=== PATIENT | male | born 1965 | race African-American/Black ===

== ENCOUNTER 2016-07-15 14:27 | Emergency (ER) ==
[2016-07-15 14:41] VITALS: BP 165/103
[2016-07-15] MEDS ORDERED: NORCO-7.5 PO ONE (15:01)
[2016-07-15] MEDS ORDERED: PHENERGAN PO ONE (15:01)
--- NOTE | 2016-07-15 15:05 | PROVIDER DOCUMENTATION ---
HPI-Headache - General Source: patient - History of Present Illness-Headache Onset/Duration: reports: just prior to arrival Timing: reports: still present Headache History: reports: frequent headaches <Mery Abarca - Last Filed: 07/15/16 15:00> - General Source: patient <Gianluca Cast - Last Filed: 07/15/16 17:45> - General Chief Complaint: Headache Stated Complaint: HEADACHE Time Seen by Provider: 07/15/16 14:50 Allergies/Adverse Reactions: Patient Allergies Allergy/AdvReac Type Severity Reaction Status Date / Time morphine Allergy Unknown Verified 02/16/16 22:33 Home Medications: Citalopram [Celexa] 20 mg PO DAILY 05/03/14 Triamterene/Hydrochlorothiazid [Triamterene-Hctz 37.5-25 mg Tb] 1 each PO DAILY 05/03/14 - History of Present Illness-Headache Nature of Presenting Problem: Pt presents to the ER with complaint of headache. Pt states headache came on just prior to arrival. (Mery Abarca) Review of Systems - Adult - REVIEW OF SYSTEMS - ADULT Constitutional: denies: chills, fever Eyes: reports: no symptoms reported Ears, Nose, Mouth & Throat: reports: no symptoms reported Cardiovascular: reports: no symptoms reported Respiratory: reports: no symptoms reported Gastrointestinal: reports: no symptoms reported Genitourinary: reports: no symptoms reported Musculoskeletal: reports: no symptoms reported Integumentary: reports: no symptoms reported Neurological: reports: headache/migraines. denies: seizure Psychiatric: reports: no symptoms reported Endocrine: reports: no symptoms reported Hematologic/Lymphatic: reports: no symptoms reported Allergic/Immunologic: reports: no symptoms reported All Other Systems: Reviewed and Negative <Mery Abarca - Last Filed: 07/15/16 15:00> Past History - Adult - PAST MEDICAL HISTORY-ADULT Review of Records: reports: Nursing Assessment Review, Medications Reviewed Cardiovascular: reports: HTN, hyperlipidemia Neurological: reports: CVA, Seizures/Epilepsy, TIA - PRIOR SURGERIES/PROCEDURES Surgical/Procedure History: reports: none - IMMUNIZATION STATUS Childhood Immunizations: See Nurse Assessment Flu Vaccine: See Nurse Assessment <Mery Abarca - Last Filed: 07/15/16 15:00> Physical Exam- Neurological - Physical Exam-Neuro General Appearance: appears well, no apparent distress Eye Exam: bilateral eye: normal inspection, PERRL HENMT: normocephalic/atraumatic, normal ENT inspection Head Injury: no evidence of injury. negative: lacerations Neck: supple, normal inspection Respiratory: no respiratory distress, no accessory muscle use Cardiovascular: normal peripheral pulses, regular rate, rhythm Extremity: normal gait, normal inspection forging press operator Exam: normal hearing, normal speech Coordination/Gait: normal gait Motor/Sensory: no sensory deficit, no pronator drift Neurologic: grossly normal, no motor/sensory deficits Integumentary: normal color, warm/dry Psych/Mental Status: normal mood/affect, normal thought content, normal thought process, oriented x 3 <Mery Abarca - Last Filed: 07/15/16 15:00> Progress <Mrey Abarca - Last Filed: 07/15/16 15:00> - REASSESSMENT Reassessment #1 Time Reassessed: 17:44 Status: improving Reassessment Comment: feeling better, ready to dc <Gianluca Cast - Last Filed: 07/15/16 17:45> - PLAN OF CARE/RESULTS Progress/Plan/Lab Results: Vital Signs - 24 hr 07/15/16 14:35 Temperature 97.6 F Pulse Rate 105 H Respiratory 18 Rate Blood Pressure 165/103 O2 Sat by Pulse 98 Oximetry Orders Category Date Time Status Chlorpromazine [Thorazine] Med 07/15/16 16:33 Discontinued 25 mg PO NOW ONE Hydrocodone/APAP 7.5 mg/325 mg [Savanna-7.5] Med 07/15/16 15:01 Discontinued 1 each PO NOW ONE Meperidine [Demerol] Med 07/15/16 15:55 Discontinued 50 mg IM NOW ONE Promethazine [Phenergan] Med 07/15/16 15:55 Discontinued 25 mg IM NOW ONE Promethazine [Phenergan] Med 07/15/16 15:01 Discontinued 25 mg PO NOW ONE Orders Category Date Time Status Chlorpromazine [Thorazine] Med 07/15/16 16:33 Discontinued 25 mg PO NOW ONE Hydrocodone/APAP 7.5 mg/325 mg [Savanna-7.5] Med 07/15/16 15:01 Discontinued 1 each PO NOW ONE Meperidine [Demerol] Med 07/15/16 15:55 Discontinued 50 mg IM NOW ONE Promethazine [Phenergan] Med 07/15/16 15:55 Discontinued 25 mg IM NOW ONE Promethazine [Phenergan] Med 07/15/16 15:01 Discontinued 25 mg PO NOW ONE Vital Signs - 24 hr 07/15/16 14:35 Temperature 97.6 F Pulse Rate 105 H Respiratory 18 Rate Blood Pressure 165/103 O2 Sat by Pulse 98 Oximetry (Gianluca Cast) Departure <Mery Abarca - Last Filed: 07/15/16 15:00> - Departure Time of Disposition Order: 17:44 Certified Medical Emergency: Emergent <Gianluca Cast - Last Filed: 07/15/16 17:45> - Departure DIAGNOSIS: Head ache Disposition: HOME 01 Condition: Stable Additional Instructions: ED Follow Up Instructions: You have been treated by a care provider in the Emergency Department. These instructions are being provided to you so you can have an understanding of how to care for yourself upon discharge. Upon discharge from the Emergency Department, you are responsible for making arrangements for follow-up care by a physician of your choice. Take all prescribed medications as directed. Return to the Emergency Department immediately for any new or worsening symptoms. You may call the Physician Referral phone number at [phone] to obtain a list of Physicians who are taking new patients. Prescriptions: Prochlorperazine [Compazine] 10 mg PO TID PRN PRN #30 tablet PRN Reason: Vomiting Hydrocodone/APAP 5 mg/325 mg [Savanna-5] 1 each PO Q6H PRN PRN #20 tablet PRN Reason: Pain Referrals: Ying Holliday MD [Primary Care Provider] - Call for Appoint. 1-2days Instructions: Migraine Headache, Pgar-[id number]-Vkdx, Tension Headache Attestation - Scribe Verification/Attestation Scribe:: Mery Abarca Acting as Scribe for:: Gianluca Cast Scribe documention review:: This chart was documented by a scribe and accurately reflects the service the provider performed and the decisions made by the provider. <Mery Abarca - Last Filed: 07/15/16 15:00> Physician Attestation
[2016-07-15] MEDS ORDERED: PHENERGAN IM ONE (15:55)
[2016-07-15] MEDS ORDERED: DEMEROL IM ONE (15:55)
[2016-07-15] MEDS ORDERED: THORAZINE PO ONE (16:33)
== END 2016-07-15 17:55 | disposition home or self-care (01) ==
LOC: P.ED 14:27
DX: R51 Headache (principal); I10 Essential (primary) hypertension; E78.5 Hyperlipidemia, unspecified; Z79.899 Other long term (current) drug therapy; Z86.73 Personal history of transient ischemic attack (TIA), and cerebral infarction without residual deficits
CPT/HCPCS: 96372; J2175; J2550